=== PATIENT | female | born 1935 | race Two or more races ===

== ENCOUNTER 2021-05-05 07:48 | Outpatient (CLI) | payer OTHER | END 2021-05-05 07:54 | disposition home or self-care (01) | LOC: RX STUDY 07:48 | DX: K57.90 Diverticulosis of intestine, part unspecified, without perforation or abscess without bleeding (principal); K29.01 Acute gastritis with bleeding; R10.13 Epigastric pain; R13.12 Dysphagia, oropharyngeal phase ==